=== PATIENT | male | born 1975 | race Caucasian/White ===

== ENCOUNTER → 2023-06-16 | Outpatient (CLI) | payer OTHER ==
[~2023-06-16] MED LIST: BENTYL20 MG PO; PROTONIX40 MG PO; VICODIN 500 MG-1 TAB PO; Zofran4 MG PO
== END | disposition home or self-care (01) ==
LOC: ORTHO 09:05
PROVIDERS: ATTEND Orthopaedic Surgery
DX: M17.0 Bilateral primary osteoarthritis of knee (principal); M76.52 Patellar tendinitis, left knee; M76.51 Patellar tendinitis, right knee